=== PATIENT | male | born 1975 | race Caucasian/White ===

== ENCOUNTER → 2023-11-06 | Outpatient (CLI) | payer BC ==
--- NOTE | 2023-11-07 07:28 | CA ---
Transthoracic Echo Report Name: Cam Robert Age: 48 Gender: M : 1975 Exam Date: 11/06/2023 16:41 Exam Location: [place] [facility] Ht (in): 74 Wt (lb): 310 Ordering Physician: Pantera Fisher MD Attending/Referring Phys: Pantera Fisher MD [employer] Rohini Liz, [facility] Procedure CPT: Indications: R94.31 ABNORMAL ELECTROCARDIOGRAM [ECG] [EKG] Cardiac Hx: Technical Quality: Technically difficult study Contrast 1: Definity Total Dose (mL): 2 Contrast 2: Total Dose (mL): MEASUREMENTS (Male / Female) Normal Values 2D ECHO LV Diastolic Diameter PLAX 4.9 cm 4.2 - 5.9 / 3.9 - 5.3 cm LV Systolic Diameter PLAX 3.2 cm IVS Diastolic Thickness 1.4 cm 0.6 - 1.0 / 0.6 - 0.9 cm LVPW Diastolic Thickness 1.4 cm 0.6 - 1.0 / 0.6 - 0.9 cm LV Relative Wall Thickness 0.6 RV Internal Dim ED PLAX 3.5 cm LA Systolic Diameter LX 4.0 cm 3.0 - 4.0 / 2.7 - 3.8 cm M-MODE Aortic Root Diameter MM 2.9 cm MV E Point Septal Separation 0.2 cm AV Cusp Separation MM 2.5 cm DOPPLER AV Peak Velocity 168.9 cm/s AV Peak Gradient 11.4 mmHg MV Area PHT 4.4 cm??? Mitral E Point Velocity 109.4 cm/s Mitral A Point Velocity 76.4 cm/s Mitral E to A Ratio 1.4 MV Deceleration Time 173.3 ms TR Peak Velocity 224.2 cm/s TR Peak Gradient 20.1 mmHg Right Ventricular Systolic Press 24.7 mmHg FINDINGS Left Ventricle Left ventricular ejection fraction is estimated at 55-60 %. Left ventricular cavity size normal. Moderate concentric left ventricular hypertrophy. No obvious regional wall motion abnormalities. Right Ventricle Mild right ventricular dilatation. Right ventricular systolic pressure within normal limits. Right Atrium Right atrium not well visualized. Left Atrium Left atrial size at the upper limits of normal. Mitral Valve Structurally normal mitral valve. No mitral stenosis, regurgitation or prolapse. Aortic Valve Trileaflet aortic valve. No aortic valve stenosis or regurgitation. Tricuspid Valve Structurally normal tricuspid valve. Mild tricuspid regurgitation. Pulmonic Valve Pulmonic valve not well visualized. Pericardium No pericardial or pleural effusion. Aorta Normal size aortic root and proximal ascending aorta. CONCLUSIONS Technically difficult study Normal LV systolic function Previewed by: Dr. Josue Vargas MD (Electronically Signed) Final Date: 07 Nov 2023 07:28
== END | disposition home or self-care (01) ==
LOC: RADECHMAIN 16:25
PROVIDERS: ATTEND Family Medicine
DX: R00.1 Bradycardia, unspecified (principal); R94.31 Abnormal electrocardiogram [ECG] [EKG]; Z82.49 Family history of ischemic heart disease and other diseases of the circulatory system
CPT/HCPCS: 93306; Q9957